=== PATIENT | female | born 1950 | race African-American/Black ===

== ENCOUNTER → 2017-06-09 15:25 | Outpatient (CLI) | payer MEDICARE, SELFPAY ==
--- NOTE | 2017-06-09 15:32 | MM_ITS ---
MM Dig screening mamm BI w/CAD CAD Screening ORDERING PHYSICIAN : Matthew Del Rio MD PATIENT AGE: 67 years GENDER: Female COMPARISON: Previous mammograms: October INDICATION: TECHNIQUE: Standard CC and MLO images were obtained. In addition cleavage view & axillary cc view right breast. R2 CAD reviewed. FINDINGS: No significant new findings. Lower density breast with fatty replacement. Mild residual fibroglandular elements most evident towards anterior breast seen on right more so than left. Mild asymmetry stable RIGHT BREAST:Stable appearance to the minimal residual fibroglandular elements at the anterior breast LEFT BREAST:No new findings follow up one year =======IMPRESSION: ========= Stable bilateral mammogram with no significant new findings. BI-RADS Category: 2 Benign Finding(s) RECOMMENDED FOLLOW-UP: 1YR - 1 YEAR FOLLOW-UP (A letter has been sent to the patient regarding results of the study.)
--- NOTE | 2017-06-09 15:33 | XR_ITS ---
XR DEXA axial skeleton HISTORY: ITS.REASON: POST MENOPAUSAL ORDERING PHYSICIAN: Matthew Del Rio MD PATIENT AGE: 67 years COMPARISON: None FINDINGS: L1 L4 density is normal with a T score of 1.5. The BMD measured at the left femoral neck is 1.008 g/cm squared with a T score of -0.2 . This is considered normal according to the World Health Organization criteria. Fracture risk is low. Suggest follow-up exam May 2019. IMPRESSION: Normal bone density
== END ==
PROVIDERS: Family Provider Internal Medicine Adolescent Medicine; PCP Internal Medicine Adolescent Medicine; Visit Provider Internal Medicine Adolescent Medicine
DX: Z12.31 Encounter for screening mammogram for malignant neoplasm of breast (principal); Z78.0 Asymptomatic menopausal state; Z13.820 Encounter for screening for osteoporosis
CPT/HCPCS: 77067; 77080

== ENCOUNTER → 2018-07-18 16:15 | Outpatient (CLI) | payer MEDICARE, SELFPAY ==
--- NOTE | 2018-07-18 16:22 | MM_ITS ---
MM Dig screening mamm BI w/CAD ORDERING PHYSICIAN : Matthew Del Rio MD PATIENT AGE: 68 years GENDER: Female COMPARISON: October2015 INDICATION: ITS.Routine SCREENING mammographic. no hormones. No new complaints Family history:. Sister with breast cancer age 30 TECHNIQUE: Standard CC and MLO images were obtained. R2 CAD reviewed. Additional CC views bilaterally so as to include the entire large right breast FINDINGS: Minimal residual fibroglandular elements most evident towards the anterior breast. Lower density breast bilaterally. Moderate Generalized fatty replacement. Most evident towards the deep breast. No new areas of concern either breast. No dominant mass no suspicious lesions. No suspicious calcifications. A few small punctate benign calcifications medial retroareolar region on right again noted. Most of which dates back to 2013. No significant new findings either breast. Bilateral follow-up one year recommended IMPRESSION: Stable bilateral mammogram No significant new findings. Bilateral follow-up one year recommended BI-RADS Category: 1 Negative RECOMMENDED FOLLOW-UP: 1YR 1 YEAR FOLLOW-UP (A letter has been sent to the patient regarding results of the study.)
== END ==
PROVIDERS: PCP Internal Medicine Adolescent Medicine; Visit Provider Internal Medicine Adolescent Medicine
DX: Z12.31 Encounter for screening mammogram for malignant neoplasm of breast (principal)
CPT/HCPCS: 77067

== ENCOUNTER → 2021-10-10 08:09 | Outpatient (CLI) | payer MEDICARE, SELFPAY ==
--- NOTE | 2021-10-10 08:14 | MM_ITS ---
PROCEDURE INFORMATION: Exam: MG Bilateral Screening 3D Mammography Exam date and time: 10/10/2021 8:19 AM Age: 71 years old Clinical indication: Screening examination TECHNIQUE: Imaging protocol: Bilateral Screening tomosynthesis and 2D mammography including computer-aided detection (CAD) when performed. COMPARISON: 1. MG DIG MAMM-SCREEN MEGAN 07/18/2018 4:31 PM 2. MG SCBI MM Dig screening mamm BI w/CAD 06/09/2017 3:57 PM FINDINGS: MAMMOGRAPHY: Breast composition: There are scattered areas of fibroglandular density. Mass: None. Architectural distortion: None. Calcifications: No suspicious calcifications. Asymmetric density: None. Skin thickening: None. Axillary adenopathy: None. IMPRESSION: No mammographic evidence of malignancy. Annual screening is recommended unless otherwise clinically indicated. ASSESSMENT: BI-RADS Category 1: Negative
== END ==
PROVIDERS: PCP Internal Medicine Adolescent Medicine; Visit Provider Nurse Practitioner Family
DX: Z12.31 Encounter for screening mammogram for malignant neoplasm of breast (principal)
CPT/HCPCS: 77063; 77067

== ENCOUNTER 2023-12-09 09:16 | Outpatient (CLI) | payer MEDICARE, SELFPAY ==
--- NOTE | 2023-12-09 09:19 | XR_ITS ---
FINAL REPORT TECHNIQUE: Bone densitometry calculations of the lumbar spine and left hip were obtained. CLINICAL HISTORY: .screening COMPARISON: None FINDINGS: Using L1-4, the bone mineral density of the spine is 1.1-2 g/cm2, corresponding to T-score of 0.7. Using the left hip, the bone mineral density of the femoral neck is 0.877 g/cm2, corresponding to a T-score of 0.3. NOTE: T-score: Standard deviation compared with peak bone mass of young adult mean. *Following the recommendations of the International Society of Bone densitometry, classification of hip BMD is based on the lower of two T-scores; total hip or femoral neck. IMPRESSION: Normal bone mineral density of the lumbar spine and hip. Reviewed, Interpreted and Dictated by Bennie Crowell MD Transcribed by Rebecca Harp Authenticated and [facility]
--- NOTE | 2023-12-09 09:19 | MM_ITS ---
PROCEDURE INFORMATION: Exam: MG Bilateral Screening 3D Mammography Exam date and time: 12/09/2023 9:15 AM Age: 73 years old Clinical indication: Screening examination TECHNIQUE: Imaging protocol: Bilateral Screening tomosynthesis and 2D mammography including computer-aided detection (CAD) when performed. COMPARISON: 1. MG MM DIG SCREENING MAMM BI W/CAD 10/10/2021 8:19 AM 2. MG DIG MAMM-SCREEN MEGAN 07/18/2018 4:31 PM FINDINGS: MAMMOGRAPHY: Breast composition: There are scattered areas of fibroglandular density. Mass: No suspicious masses. Architectural distortion: None. Calcifications: No suspicious calcifications. Asymmetric density: None. Skin thickening: None. Axillary adenopathy: None. IMPRESSION: No mammographic evidence of malignancy. Annual screening is recommended unless otherwise clinically indicated. ASSESSMENT: BI-RADS Category 1: Negative.
== END 2023-12-09 23:59 | disposition home or self-care (01) ==
LOC: RAD 09:16
PROVIDERS: PCP Internal Medicine Adolescent Medicine; Visit Provider Internal Medicine Adolescent Medicine
DX: M81.0 Age-related osteoporosis without current pathological fracture (principal); Z12.31 Encounter for screening mammogram for malignant neoplasm of breast; Z78.0 Asymptomatic menopausal state
CPT/HCPCS: 77063; 77067; 77080

== ENCOUNTER 2024-07-17 10:45 | Outpatient (CLI) | payer MEDICARE, MEDICAID, SELFPAY ==
--- NOTE | 2024-07-17 10:56 | XR_ITS ---
FINAL REPORT CLINICAL HISTORY: c/o right hip pain, denies any surgeries COMPARISON: None FINDINGS: An AP view of the pelvis and AP and frog leg views of the right hip were obtained. There is no acute fracture or dislocation. Advanced degenerative joint disease of the right hip is present, with complete loss of the joint space. There are subchondral cysts present in the femoral head and in the acetabulum. Soft tissues are unremarkable. IMPRESSION: Advanced degenerative joint disease of the right hip as described above. No acute bony abnormality is identified. Reviewed, Interpreted and Dictated by Mary Ann Marti MD Transcribed by Rebecca Harp Authenticated and [facility]
--- NOTE | 2024-07-17 10:56 | XR_ITS ---
FINAL REPORT CLINICAL HISTORY: c/o right hip/ si joint pain COMPARISON: None FINDINGS: SACROILIAC JOINTS: AP and oblique views of the sacroiliac joints were obtained. There is no prior exam for comparison. There is no acute fracture or other acute osseous abnormality. The SI joints are symmetric bilaterally. Mild degenerative joint disease is present bilaterally. No evidence of ankylosis or erosions is seen. No acute soft tissue abnormality is present. 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 Reviewed, Interpreted and Dictated by Mary Ann Marti MD Transcribed by Rebecca Harp Authenticated and [facility]
--- NOTE | 2024-07-17 10:56 | XR_ITS ---
FINAL REPORT TECHNIQUE: Lumbar spine 5 views CLINICAL HISTORY: c/o low back pain, denies any surgeries COMPARISON: None FINDINGS: AP, lateral, and oblique views of the lumbar spine were obtained. There is no acute fracture or acute malalignment. Vertebral body height is preserved. There is grade 1 spondylolisthesis of L4 on L5. Multilevel degenerative disc disease is present, most pronounced at the L5-S1 level. No acute paraspinal abnormality is identified. IMPRESSION: No acute osseous abnormalities lumbar spine. Grade 1 spondylolisthesis of L4 on L5, with multilevel degenerative disc disease most pronounced at the L5-S1 level. Reviewed, Interpreted and Dictated by Mary Ann Mrati MD Transcribed by Rebecca Harp Authenticated and [facility]
== END 2024-07-17 23:59 | disposition home or self-care (01) ==
LOC: RAD 10:46
PROVIDERS: PCP Internal Medicine Adolescent Medicine; Visit Provider Internal Medicine Adolescent Medicine
DX: M25.551 Pain in right hip (principal)
CPT/HCPCS: 72110; 72202; 73502

== ENCOUNTER 2024-12-12 13:49 | Outpatient (RCR) | payer MEDICARE, MEDICAID, SELFPAY | END 2024-12-12 23:59 | disposition home or self-care (01) | LOC: PT 13:49 | PROVIDERS: Visit Provider Nurse Practitioner Family | DX: M16.11 Unilateral primary osteoarthritis, right hip (principal) | CPT/HCPCS: 97162 ==

== ENCOUNTER 2025-01-11 14:00 | Outpatient (RCR) | payer MEDICARE, MEDICAID, SELFPAY | END 2025-01-11 23:59 | disposition home or self-care (01) | LOC: PT 14:00 | PROVIDERS: Visit Provider Nurse Practitioner Family | DX: M16.11 Unilateral primary osteoarthritis, right hip (principal) | CPT/HCPCS: 97110; 97116; 97530 ==